=== PATIENT | male | born 1950 | race Caucasian/White ===

== ENCOUNTER → 2018-04-19 10:27 | Outpatient (CLI) | payer MEDICARE, SELFPAY ==
--- NOTE | 2018-04-19 10:29 | RAD_ITS ---
STUDY: X-RAY - RIGHT ELBOW REASON FOR EXAM: Male, 67 years old. Pain and swelling. TECHNIQUE: 3 view(s) of the elbow. COMPARISON: None. FINDINGS: Normal visualized humerus, radius and ulna. Normal radiocapitellar and ulnotrochlear articulations. There is posterior soft tissue swelling. There is no demonstrated fracture. RAD/Elbow min 3 Views IMPRESSION: Soft tissue swelling. Electronically Signed: Mihir Ricks MD at 23:54 EDT , Service support ,
== END ==
PROVIDERS: Family Provider Family Medicine; PCP Family Medicine; Visit Provider Orthopaedic Surgery
DX: M25.521 Pain in right elbow (principal)
CPT/HCPCS: 73080

== ENCOUNTER 2018-04-25 06:57 | Day surgery (SDC) | payer MEDICARE, SELFPAY ==
[2018-04-25] VITALS (8 sets, daily range): BP systolic 94–136; BP diastolic 59–89; PULSE 65–74; RESP 16; TEMP 36.2–36.8; O2SAT 94–100; BMI 28.8
[2018-04-25] MEDS: Cefazolin 2 GM in 0.9% Normal Saline 100 ML IV (08:26)
--- NOTE | 2018-04-25 08:34 | DCINST_ITS ---
Discharge Diet: No Restrictions - keep dressing c/d/i, leave splint on, follow up on monday for wound check/ removal of yandel drain Discharge Activity: May Not Drive May shower in (days): 1 Ice area for (Minutes): 20 - Every hour while awake. Weight Bearing Status: Weight bearing as tolerated Keep extremity elevated above heart level: Operative Extremity Call your doctor if your incision/area has: Continuous Slow Oozing, Sudden Increased Bleeding, Increased Pain/ Swelling, Increased Redness, Foul Smelling Discharge Call your doctor if you observe: Fever of 101 or Higher, Coldness, Increased Pain, Numbness or Tingling, Change in Color, Calf discomfort Allergies/Adverse Reactions: Allergies No Known Allergies Allergy (Unverified 04/19/18 10:18) Medications to take at Discharge allopurinol 100 mg tablet 100 mg PO QDAY 04/19/18 amlodipine 5 mg-benazepril 10 mg capsule 1 cap PO QDAY 04/19/18 aspirin 81 mg tablet,delayed release 81 mg PO QDAY 04/19/18 levothyroxine 150 mcg capsule 150 mcg PO QDAY 04/19/18 losartan 25 mg tablet 25 mg PO QDAY 04/19/18 metoprolol succinate ER 100 mg tablet,extended release 24 hr 100 mg PO BID 04/19 nitroglycerin 0.4 mg sublingual tablet 0.4 mg SUBLINGUAL Q5M PRN 04/19/18 tamsulosin 0.4 mg capsule 0.4 mg PO QDAY 04/19/18 Hydrocodone Bitart/Apap 5-325 [Marston 5MG-325MG] 1 - 2 tablet PO Q6H PRN PRN 5 Days #56 tablet 04/25/18 The following prescriptions were given: Hydrocodone Bitart/Apap 5-325 [Marston 5MG-325MG] 1 - 2 tablet PO Q6H PRN PRN 5 Days #56 tablet PRN Reason: Pain Primary Care Physician: Abisai Joseph [Primary Care Provider] - Please Follow Up With: Ct Bravo, - [phone]
[2018-04-25] MEDS: Mupirocin Ointment 22gm Tube 1 APPLIC (09:45)
--- NOTE | 2018-04-25 10:03 | OP.PCM_ITS ---
Report of Operation Date of Procedure: 04/25/18 Pre-Operative Diagnosis: right olecranon septic bursitis Post-Operative Diagnosis: same Surgery/Procedure Performed:: right olecranon bursectomy/ irrigation/debridement , olecranon bony debridement, Type of Anesthesia:: General Anesthesiologist: Kwasi Mendez Specimen's removed: olecranon bursae, olecranon bone, cultures sent Drains: yandel Estimated Blood Loss (mL): 10cc Fluids Replaced: 1100cc lr Description of Procedure: Preoperative note Patient was seen in my office last week with continued right pain elbow pain and redness. He has been seen by his primary care doctor who has been putting him on different antibiotics with minimal improvement. Patient states that the redness was getting worse and is therefore seen by myself in the clinic. At that point we elected to proceed with the removal of the olecranon bursa and bony debridement as it appeared to be a septic bursitis. Risks benefits and alternatives surgery discussed with patient. Risks including but not limited to blood loss, blood clot, infection, neurovascular injury, failure procedure, loss of life and loss of limb. Patient is aware would like to proceed with right olecranon bursectomy repair is indicated. Operative note Patient seen and examined preoperative holding area. Right arm is marked. Patient is brought to the operating room placed supine on the operating table. Signing, anesthesia, antibiotics were administered. The right arm was prepped and draped in usual sterile fashion with a tourniquet around his upper arm after he was placed laterally with an axillary roll under his left axilla. We marked out our curvilinear incision starting medially and extend and extending it going around the electronic laterally so as not to be a pressure if patient leans on his elbow and to avoid the ulnar nerve which was palpated prior to initiation of our incision.. The arm was elevated the tourniquet was raised her pressure of 250 torr. Timeout was performed. We then used a 15 blade to cut through the skin around the olecranon about a 4 cm incision. After we were able to go into the olecranon bursa and pus came out of the olecranon bursa site. We sent this to pathology for cultures. We then use a combination of tenotomies and a Bovie dissected out the bursa and this was sent as well. There is a thickened bursa throughout he also had a cleft of a traction spur and some bone that we debrided to ensure that there is no osteomyelitis due to the chronicity of the infection. We irrigated with copious amounts of sterile saline. Tourniquet was deflated for to coagulate all bleeders skin was closed with interrupted 4-0 nylon sutures and a Yandel drain was placed. Tourniquet total working time of 32 minutes. Sterile dressings were applied patient was placed in a posterior splint at 90?. Patient was extubated sent to recovery room in stable condition. Patient tolerated procedure well there are no complications. Operative note Patient to see on Monday for removal of drain We will patient put patient on antibiotics Call with increased pain numbness tingling further issues arise This note was generated with [employer] dictation software. It may contain incorrect words, spelling, and punctuation that were not noted in checking the note before signing.
[2018-04-25] MEDS: HYDROcodone Bitartrate/Apap 5/325 Tablet PO (11:29)
== END 2018-04-25 12:44 | disposition home or self-care (01) ==
LOC: SDC 06:58 → AC 06:59
PROVIDERS: Family Provider Family Medicine; PCP Family Medicine; Visit Provider Orthopaedic Surgery
PROC: (CPT 24105; principal; 2018-04-25 08:15)
DX: M70.21 Olecranon bursitis, right elbow (principal); I10 Essential (primary) hypertension; E03.9 Hypothyroidism, unspecified; I73.9 Peripheral vascular disease, unspecified; I48.91 Unspecified atrial fibrillation; Q61.3 Polycystic kidney, unspecified; M10.9 Gout, unspecified; F43.10 Post-traumatic stress disorder, unspecified; X58.XXXA Exposure to other specified factors, initial encounter; Y93.9 Activity, unspecified; Y92.9 Unspecified place or not applicable; Y99.9 Unspecified external cause status; F32.9 Major depressive disorder, single episode, unspecified; F41.9 Anxiety disorder, unspecified; Z79.82 Long term (current) use of aspirin; Z79.899 Other long term (current) drug therapy; Z85.850 Personal history of malignant neoplasm of thyroid; Z86.73 Personal history of transient ischemic attack (TIA), and cerebral infarction without residual deficits; Z87.891 Personal history of nicotine dependence; Z95.5 Presence of coronary angioplasty implant and graft
CPT/HCPCS: 24147; 87015; 87070; 87075; 87077; 87102; 87116; 87186; 87205; 87206; J7120; J2405

== ENCOUNTER → 2018-05-10 12:40 | Outpatient (CLI) | payer MEDICARE, SELFPAY ==
[2018-05-10 13:19] LABS: Pathologist Comment May follow
[2018-05-10 13:42] LABS: RBC /Synovial Fluid 0.035 10^6/uL (0); Synovial Fld Mononuclear WBC % 11.9 %; Synovial Fld Polynuclear WBC # 12.447 10^3/ul; Synovial Fld Polynuclear WBC % 88.1 %
[2018-05-10 14:31] LABS: AUTO B FLUID DILUENT BKGD CT WBC <0.1 RBC <0.01 (W<.1,R<.01)
[2018-05-10 14:32] LABS: Source / Synovial Fluid RIGHT ELBOW; Source- Body Fluid SYNOVIAL
[2018-05-10 14:33] LABS: Appearance /Synovial Fluid Cloudy (CLEAR); Color / Synovial Fluid Red (Pale Yellow)
[2018-05-10 14:34] LABS: Lymph 4 %; Monocyte /Synovial Fluid 3 %; Neutrophil 93 % (0-25)
[2018-05-11 11:44] LABS: PROTEIN, SYNOVIAL FLUID 4.5 g/dL (.)
[2018-05-14 14:22] LABS: Pathologist Review Reviewed
== END ==
PROVIDERS: Visit Provider Orthopaedic Surgery
DX: M70.21 Olecranon bursitis, right elbow (principal)
CPT/HCPCS: 84157; 87070; 87075; 87077; 87186; 87205; 89050; 89051; 89060

== ENCOUNTER 2018-05-25 09:15 | Day surgery (SDC) | payer MEDICARE, SELFPAY ==
[2018-05-25] VITALS (7 sets, daily range): BP systolic 120–130; BP diastolic 72–84; PULSE 65–75; RESP 16–18; TEMP 36.3–36.7; O2SAT 92–100; BMI 29.4
--- NOTE | 2018-05-25 | BON_PTH ---
PATIENT: CHELLY GARCIA LOC: [facility] U#:[id number] AGE/SX: 67/M ROOM: RE05/25/[address]: Dr. Ct Bravo DO : 1950 BED: DIS: 05/25/2018 SPEC #: [id number] RECD: 05/25/18 14:40 STATUS: ASIF REJame #: [id number] GUSTABO: 05/25/18 00:[address]: Ct Bravo DEPT: SURGICAL PATHOLOGY RECD BY: Paulo Fernández ENTERED: 05/25/18 14:41 SP TYPE: Bone OTHR DR: Dr. Abisai Joseph MD Tissues: A - Bone of arm, NOS B - Bursa, NOS Procedures: Decalcification bone/plaque Special Stain Group I Surgery Specimen Level III AFB Stain (control) GMS Stain (control) HEADER OPERATION: Excision olecranon bursectomy with hematoma evacuation PRE-OP DIAGNOSIS: Septic olecranon of right elbow, abscess of right olecranon bursa, hematoma TISSUE SUBMITTED: A ? Right olecranon bone, rule out osteomyelitis, B ? Right bursa MICROSCOPIC DIAGNOSIS A. Right olecranon bone, biopsy: Pieces of bone, negative for acute osteomyelitis. B. Bursa: Pieces of dense fibroconnective tissue with acute and chronic inflammation and granulation tissue reaction and focal area of abscess. Special stains for acid fast bacilli and fungi are negative for organisms; matched controls are appropriate. MENA:cas 05/29/18 MICROSCOPIC DESCRIPTION Slides are reviewed. GROSS DESCRIPTION A - Received in fixative is one container labeled with the patient's name and designated right olecranon bone, rule out osteomyelitis. The specimen consists of multiple fragments of bone that in aggregate measure 1.5 x 1 x 0.2 cm. The entire specimen is submitted in one cassette after decalcification. B - Received in fixative is one container labeled with the patient's name and designated bursa. The specimen consists of multiple pieces of roberts, indurated tissue that in aggregate measure 7 x 5 x 2 cm. Steel Wool Machine Operator sections are submitted in three cassettes. / MENA:cas 05/25/18 TC:2 CPT: 72770 x2, 33371, 44205 x2
--- NOTE | 2018-05-25 10:59 | PCM.DC.ORTHO ---
Discharge Diet: No Restrictions - remove dressing on monday and remove drain, REAPPLY SPLINT AND KEEP IN PLACE UNTIL SEEN IN OFFICE IN ONE WEEK FOR EVALUATION OF WOUND/INCISION, use hand as tolerated, call with increased pain, fever, chills or if other issues arise, follow up in ONE WEEK in office to see Harsh PERKINS. Discharge Activity: May Not Drive May shower in (days): 1 Ice area for (Minutes): 20 - Every hour while awake. Weight Bearing Status: Weight bearing as tolerated Keep extremity elevated above heart level: Operative Extremity Call your doctor if your incision/area has: Continuous Slow Oozing, Sudden Increased Bleeding, Increased Pain/ Swelling, Increased Redness, Foul Smelling Discharge Call your doctor if you observe: Fever of 101 or Higher, Coldness, Increased Pain, Numbness or Tingling, Change in Color, Calf discomfort Allergies/Adverse Reactions: Allergies No Known Allergies Allergy (Verified 05/25/18 09:51) Medications to take at Discharge allopurinol 100 mg tablet 100 mg PO QDAY 04/19/18 amlodipine 5 mg-benazepril 10 mg capsule 1 cap PO QDAY 04/19/18 aspirin 81 mg tablet,delayed release 81 mg PO QDAY 04/19/18 levothyroxine 150 mcg capsule 150 mcg PO QDAY 04/19/18 losartan 25 mg tablet 25 mg PO QDAY 04/19/18 metoprolol succinate ER 100 mg tablet,extended release 24 hr 100 mg PO BID 04/19/18 nitroglycerin 0.4 mg sublingual tablet 0.4 mg SUBLINGUAL Q5M PRN 04/19/18 tamsulosin 0.4 mg capsule 0.4 mg PO QDAY 04/19/18 Primary Care Physician: Abisai Joseph [Primary Care Provider] - Test Results: Test results from this visit will be discussed in further detail at your follow-up appointment, if applicable. Please Follow Up With: Ct Bravo, DO - [phone]
--- NOTE | 2018-05-25 11:00 | OP.PCM_ITS ---
Report of Operation Date of Procedure: 05/25/18 Pre-Operative Diagnosis: infected septic olecranon bursitis revision Post-Operative Diagnosis: same Surgery/Procedure Performed:: right elbow revision bursectomy, abe debridement , Description of Surgical Findings:: murky fluid and increased bursitis Type of Anesthesia:: General Anesthesiologist: Rodolfo Alejandre Specimen's removed: bursae, bone, cultures from fluid Estimated Blood Loss (mL): minimal Fluids Replaced: 900cc lr Description of Procedure: Preoperative note Patient is a 67-year-old male well-known to me. He was treated for quite some time prior to see me for his initial surgery for bursitis with repeat antibiotics however he was again and he failed the nonoperative treatment is seen in my office we elected to proceed with surgical debridement. Patient had olecranon debridement about a month ago he was noncompliant with his brace off he is moving his arm he developed a little bit appears to a hematoma and fluid collection. He was placed on postoperative antibiotics and there is no redness and however he does did accrue more fluid and have some bursal swelling. In the last week or so has gotten increasingly red and we saw the patient in the office yesterday decision was made to taken to the operating room today for repeat I&D of his right elbow. Risks benefits and alternatives surgery discussed with patient. Risks including but not limited to blood loss, blood clot, infection, neurovascular injury, failure procedure, loss of life and loss of limb. Family is aware would like proceed with revision right olecranon bursectomy repair is indicated. Operative note Patient seen and examined preoperative holding area. Right arm is marked. Patient brought to the operating room placed supine on the operating table. Signing, anesthesia, antibiotics were held until cultures were taken. Patient was placed in the lateral aspect lateral side with his right arm over roller. The right arm was prepped in usual sterile fashion with a tourniquet around his upper arm. Timeout was performed. We then marked out our incision from her previous bursectomy. The arm was elevated and tourniquet was raised her pressure of 250 torr. We then used a 15 blade to cut through the skin dissect down tenotomy syllable of the bursa there was some murky fluid that came we did culture that. He had regrown much of his bursa which was an ex-reexcised and sent to pathology as well. Excise as much as we could making sure to protect all neurovascular structures and my program services assistant was holding the hand to ensure that there is no twitching which there was not throughout the case. We did an extensive debridement of the bursa which is quite thickened we also took bone to repeat and to ensure that there is no osteomyelitis and sent that to pathology. We irrigated with pulse lavage 3 L and to the olecranon area we then also took off the and some skin edges to ensure better healing. We placed a Gustavo drain and then closed the skin with 3-0 nylon over the [place] drain. Sterile dressings were applied and the splint locked in 90? was applied to the right arm as well. Patient tolerated the tolerated procedure well there are no comp occasions patient transferred to recovery room in stable condition. Postoperative note Weight-bear as tolerated on the left arm, and no weightbearing to his right arm next Remove drain in 2 days, follow-up in the office to see my PA on for wound check Bactrim and Zofran at the hospital pharmacy With increased pain numbness tingling or further issues arise This note was generated with [employer] dictation software. It may contain incorrect words, spelling, and punctuation that were not noted in checking the note before signing.
[2018-05-25] MEDS: Cefazolin 2 GM in 0.9% Normal Saline 100 ML IV (11:34)
== END 2018-05-25 14:15 | disposition home or self-care (01) ==
LOC: SDC 09:16 → AC 09:17
PROVIDERS: Family Provider Family Medicine; PCP Family Medicine; Visit Provider Orthopaedic Surgery
PROC: (CPT 24105; principal; 2018-05-25 11:40)
DX: M71.121 Other infective bursitis, right elbow (principal); Z79.899 Other long term (current) drug therapy; Z79.82 Long term (current) use of aspirin; I10 Essential (primary) hypertension; I73.9 Peripheral vascular disease, unspecified; M10.9 Gout, unspecified; Z87.891 Personal history of nicotine dependence; Z85.850 Personal history of malignant neoplasm of thyroid; M71.021 Abscess of bursa, right elbow; I25.2 Old myocardial infarction; I25.10 Atherosclerotic heart disease of native coronary artery without angina pectoris
CPT/HCPCS: 01710; 24105; 87070; 87075; 87077; 87186; 87205; 88304; 88311; 88312; J7120; J2405

== ENCOUNTER → 2018-07-03 16:25 | Outpatient (CLI) | payer MEDICARE, SELFPAY ==
[2018-07-03 16:27] LABS: Pathologist Comment May follow
[2018-07-03 17:54] LABS: RBC /Synovial Fluid 0.002 10^6/uL (0); Synovial Fld Mononuclear WBC % 35.5 %; Synovial Fld Polynuclear WBC # 3.388 10^3/ul; Synovial Fld Polynuclear WBC % 64.5 %
[2018-07-03 20:56] LABS: AUTO B FLUID DILUENT BKGD CT WBC <0.1 RBC <0.01 (W<.1,R<.01); Appearance /Synovial Fluid Sl Cl (CLEAR); Color / Synovial Fluid Yellow (Pale Yellow); Lymph 8 %; Monocyte /Synovial Fluid 7 %; Neutrophil 73 % (0-25); Source / Synovial Fluid RIGHT ELBOW; Source- Body Fluid SYNOVIAL; Synovial Fld Mononuclear WBC # 1.868 10^3/ul
[2018-07-03 20:58] LABS: Body Fluid QC Type(s) BF1Q,BF2Q; Other Cell /Synovial Fluid 12 %
[2018-07-04 11:16] LABS: Pathologist Review Reviewed
== END ==
PROVIDERS: Visit Provider Physician Assistant
DX: M25.421 Effusion, right elbow (principal); M70.21 Olecranon bursitis, right elbow
CPT/HCPCS: 87070; 87075; 87205; 89050; 89051; 89060

== ENCOUNTER → 2019-03-18 | Outpatient (CLI) | payer MEDICARE, SELFPAY ==
--- NOTE | 2019-03-18 14:49 | VDLE_ITS ---
Reason For Study: Pain RIGHT LEFT GSV is normal. CFV is compressible, spontaneous, phasic, CFV is compressible, spontaneous, phasic, competent, and demonstrates normal competent and demonstrates normal augmentation. augmentation. FV is compressible, spontaneous, phasic, competent and demonstrates normal augmentation. POP V is compressible, spontaneous, phasic, competent and demonstrates normal augmentation. T/P Trunk is compressible. PTV is compressible. RT PerV is compressible. Procedure Exam performed in department. A preliminary report was called and/or faxed to Aaron. Interpretation Summary There is no evidence of right lower extremity deep vein thrombosis. Right greater saphenous vein appears patent and compressible segmentally. Normal flow patterns left common femoral vein Right groin 2.51 x 1.17cm lobulated non-vascular cystic structure--clinical correlation would be appropriate. Ordering Physician: Nicholas Walker Referring Physician: MD Abisai Motta Performed By: Xuan Cheung RVT
== END | disposition home or self-care (01) ==
PROVIDERS: Family Provider Family Medicine; PCP Family Medicine; Referring Provider Physician Assistant; Visit Provider Physician Assistant
DX: M79.661 Pain in right lower leg (principal)
CPT/HCPCS: 93971

== ENCOUNTER → 2019-10-17 13:56 | Outpatient (CLI) | payer MEDICARE, BC, SELFPAY ==
[2019-10-17 13:33] VITALS: BMI 29.4
--- NOTE | 2019-10-17 13:57 | RAD_ITS ---
STUDY: X-RAY - LEFT KNEE REASON FOR EXAM: Chronic pain, no specific injury. TECHNIQUE: 4 view(s) of the knee. COMPARISON: None. FINDINGS: Normal visualized distal femur. Normal visualized proximal tibia and fibula. Normal proximal tibiofibular articulation. Normal medial femorotibial compartment. Normal lateral femorotibial compartment. Normal patellofemoral articulation. There is a small enthesophyte at the superior pole of the patella. There is a small soft tissue calcification posterior to the proximal tibial diaphysis. RAD/Knee 4 or More Views IMPRESSION: Small patellar enthesophyte. Small soft tissue calcification. Otherwise, unremarkable x-ray examination of the left knee. Electronically Signed: Azael Delcid MD at 14:22 EST Tel , Service support ,
== END ==
PROVIDERS: Family Provider Family Medicine; PCP Family Medicine; Referring Provider Orthopaedic Surgery; Visit Provider Orthopaedic Surgery
DX: M25.562 Pain in left knee (principal)
CPT/HCPCS: 73564

== ENCOUNTER → 2020-06-11 14:29 | Outpatient (CLI) | payer MEDICARE, BC, SELFPAY ==
[2020-06-11 14:18] VITALS: BMI 29.4
--- NOTE | 2020-06-11 14:30 | RAD_ITS ---
STUDY: X-RAY - LUMBOSACRAL SPINE REASON FOR EXAM: Male, 69 years old. PAIN TECHNIQUE: 6 view(s) of the lumbosacral spine were obtained including flexion and extension. COMPARISON: None FINDINGS: Normal lumbar lordosis. There is no substantial scoliosis. Neutral view shows 7 mm anterolisthesis of L3 on L4. Extension view shows 6 mm anterolisthesis of L3 on L4. Flexion view shows 8 mm anterolisthesis of L3 on L4. Otherwise normal alignment. Spondylosis of the endplates of L4 and L5. Moderate to marked degenerative disc disease at L3-L4, L4-L5, and L5-S1. No compression fractures. Normal bilateral sacral ala, sacroiliac joints, and visualized sacrum. There is atherosclerotic calcification of the abdominal aorta without a demonstrated aneurysm. RAD/L/S Spine Comp/w Bending Views IMPRESSION: Malalignment at L3-L4 showing minimal subluxation with flexion and extension. Moderate to marked multilevel degenerative disc disease. No gross acute abnormality. Electronically Signed: Olvin Shukla MD at 22:10 EDT , Service support ,
--- NOTE | 2020-06-11 14:30 | RAD_ITS ---
STUDY: X-RAY - PELVIS AND RIGHT HIP REASON FOR EXAM: Male, 69 years old. PAIN TECHNIQUE: 3 views of the pelvis and hip. COMPARISON: None. FINDINGS: There is a non-specific bowel gas pattern. Normal visualized soft tissue structures. Normal bilateral iliac wings, sacroiliac joints and visualized sacrum. Normal bilateral superior and inferior pubic rami. Normal pubic symphysis. Normal bilateral ischial tuberosities. Normal visualized femoral head. Normal acetabulum. Normal hip joint. RAD/HIP, UNI W/ Pelvis 2-3 Views IMPRESSION: No definite acute or significant abnormality seen. Electronically Signed: Olvin Shukla MD at 22:12 EDT , Service support ,
== END ==
PROVIDERS: PCP Family Medicine; Referring Provider Physician Assistant; Visit Provider Physician Assistant
DX: M54.5 Low back pain (principal); M25.551 Pain in right hip
CPT/HCPCS: 72114; 73502

== ENCOUNTER → 2020-06-26 09:07 | Outpatient (CLI) | payer MEDICARE, BC, SELFPAY ==
[2020-06-18 09:59] VITALS: BMI 29.4
--- NOTE | 2020-06-26 09:08 | MRI_ITS ---
STUDY: MRI LUMBAR SPINE WITH AND WITHOUT CONTRAST REASON FOR EXAM: Male, 69 years old. Severe lumbar pain and radiculopathy. 3 prior surgeries TECHNIQUE: Standardized fat and water weighted pulse sequences were obtained in the sagittal and axial planes. 15ml Dotarem via IV was administered for the contrast portion of the examination. COMPARISON: June 11 2020 plain films FINDINGS: There is grade 1 degenerative anterolisthesis of L2 on L3, approximately 5 mm. Remainder of the spine is aligned. Diffuse marrow is mildly heterogeneous and normal. Paraspinous soft tissues are intact. Upper portions of the SI joints are degenerated. There are likely bilateral renal cysts, incompletely evaluated. Conus medullaris terminates at T12-L1. Cauda equina is restricted at L2-L3. L2-L3 has moderate to severe spondylotic thecal sac stenosis. Remainder of the levels have patent thecal sac with lower lumbar left decompression laminotomies. There are possible remote microdiscectomies. There is no disc herniation. There is multilevel mild to moderate bilateral foraminal stenosis. Lateral recesses are patent. Spinal enhancement is normal. Epidural space is intact. MRI/Spine Lumbar W/WO Contrast IMPRESSION: 1. Moderate to severe L2-L3 spondylotic thecal sac stenosis. 2. Patent remainder of the thecal sac including surgically decompressed levels. 3. L2-L3 grade 1 anterolisthesis. 4. Possible renal cysts, refer to renal imaging for more definitive evaluation to exclude solid renal mass. Electronically Signed: Jack Guidry, at 17:48 EDT Tel , Service support ,
[2020-06-26 09:46] LABS: CREATININE FINGERSTICK 1.3 mg/dL (0.70-1.30)
== END ==
PROVIDERS: PCP Family Medicine; Referring Provider Physician Assistant; Visit Provider Physician Assistant
DX: M54.16 Radiculopathy, lumbar region (principal)
CPT/HCPCS: 72158; A9575

== ENCOUNTER → 2022-08-22 | Outpatient (CLI) | payer MEDICARE, BC, SELFPAY ==
--- NOTE | 2022-08-22 16:35 | RAD_ITS ---
STUDY: X-RAY - THORACIC SPINE REASON FOR EXAM: Male, 72 years old. M51.34 TECHNIQUE: 3 view(s) of the thoracic spine were obtained. COMPARISON: None. FINDINGS: Normal kyphosis of the thoracic spine. There is no substantial scoliosis. There is slight multilevel loss of height which is chronic. There is multilevel anterior osteophyte formation without visualized acute loss of height or alignment. There is multilevel disc space narrowing of the thoracic spine. The visualized cervical spine fusion. This is seen at the level of C3 C4 C5. There is slight anterolisthesis of the is partially visualized anterolisthesis of the cervical spine at C2-C3. The soft tissue structures are unremarkable. RAD/Thoracic Spine 3 Views IMPRESSION: Degenerative change of the thoracic spine. Recommend dedicated cervical spine x-ray. There is partially visualized slight anterolisthesis at the level of C2-C3. Electronically Signed: Leatha Marion MD at 6:08 EDT Reading Location ID and State: [facility] / [place] Tel , Service support ,
== END | disposition home or self-care (01) ==
LOC: RAD 16:25
PROVIDERS: PCP Family Medicine; Visit Provider Anesthesiology Pain Medicine
DX: M51.36 Other intervertebral disc degeneration, lumbar region (principal)
CPT/HCPCS: 72072

== ENCOUNTER → 2022-10-24 | Outpatient (CLI) | payer MEDICARE, BC, SELFPAY ==
--- NOTE | 2022-10-24 16:55 | RAD_ITS ---
INDICATION: DISC DEGEN EXAMINATION/TECHNIQUE: X-RAY - XR Spine Cervical 2 or 3 Views COMPARISON: None. FINDINGS: VERTEBRAE: 1. Vertebral body height is maintained, anterior plate and screw fixation with interbody fusion from C3 to C5. Mild reversal of cervical lordosis which appears chronic and at the operative levels. 2. No evidence of fracture or hardware failure or acute destructive bony process. 3. Odontoid process and alignment craniocervical junction are normal. 4. The odontoid process is normal appearance. DISCS: Postop changes at this bases that C3-4 and C4-5. Mild disc space narrowing at C5-6. NECK SOFT TISSUES: No prevertebral soft tissue widening. LUNG APICES: Clear. OTHER: Foreign bodies consistent with bilateral hearing age. RAD/Cerv Spine 2 or 3 Views IMPRESSION: 1. Postoperative changes with anterior plate and screw fixation from C5. 2. No evidence of fracture, hardware failure or acute bony or paraspinous soft tissue abnormality.. Electronically Signed: Obdulio Colmenares MD at 19:22 EST ,
== END | disposition home or self-care (01) ==
LOC: RAD 16:38
PROVIDERS: PCP Family Medicine; Referring Provider Anesthesiology Pain Medicine; Visit Provider Anesthesiology Pain Medicine
DX: M50.322 Other cervical disc degeneration at C5-C6 level (principal); Z98.1 Arthrodesis status; M47.812 Spondylosis without myelopathy or radiculopathy, cervical region; M47.892 Other spondylosis, cervical region
CPT/HCPCS: 72040

== ENCOUNTER → 2023-03-15 | Outpatient (CLI) | payer OTHER, SELFPAY ==
--- NOTE | 2023-03-15 13:04 | ECHOD_ITS ---
Reason For Study: CAD/ASHD Procedure This was a 2D Doppler, Color Flow transthoracic echocardiogram. Exam performed in department. Left Ventricle Normal LV size. The estimated ejection fraction is 60 %. No evidence for diastolic dysfunction. No regional wall motion abnormalities noted. Right Ventricle Normal RV size. Normal systolic function. Atria Normal left atrium. Normal right atrium. No doppler evidence for ASD. Mitral Valve There is no mitral valve stenosis. Trivial mitral valve insufficiency. Tricuspid Valve There is no tricuspid stenosis. Pulmonary artery systolic pressure is 40 mmHg. Trivial tricuspid valve insufficiency. Aortic Valve Trisinus/trileaflet aortic valve. There is no aortic stenosis. No aortic valve insufficiency. Pulmonic Valve There is no pulmonic valvular stenosis. No pulmonic valve insufficiency. Great Vessels Normal aortic root. Pericardium/Pleural No pericardial effusion. MMode/2D Measurements & Calculations RVDd: 3.6 cm Ao root diam: 3.6 cm LAV(MOD-bp): 65.5 ml LAV(MOD-bp) Indexed: 35.6 ml/m2 LAV(MOD-sp2): 87.2 ml LAV(MOD-sp4): 45.5 ml SV(MOD-sp4): 49.9 ml SV(sp4-el): 50.9 ml LVAd ap4: 27.2 cm2 LVLd ap4: 9.0 cm EDV(MOD-sp4): 68.3 ml EDV(sp4-el): 69.6 ml LVAs ap4: 12.9 cm2 LVLs ap4: 7.6 cm ESV(MOD-sp4): 18.3 ml ESV(sp4-el): 18.7 ml EF(MOD-sp4): 73.1 % EF(sp4-el): 73.1 % LA A4 area: 18.1 cm2 LA dimension(2D): 4.1 cm RA A4 area: 16.7 cm2 Time Measurements MV dec time: 0.33 sec Doppler Measurements & Calculations MV E max maynor: 66.6 cm/sec Lat Peak E' Maynor: 7.3 cm/sec Med Peak E' Maynor: 6.6 cm/sec MV A max maynor: 109.9 cm/sec E/E' lat: 9.1 E/E' med: 10.0 MV E/A: 0.61 MV V2 max: 114.9 cm/sec MV dec slope: 201.6 cm/sec2 Ao V2 max: 163.1 cm/sec MV max P.3 mmHg Ao max P.7 mmHg MV V2 mean: 61.4 cm/sec Ao V2 mean: 116.6 cm/sec MV mean P.7 mmHg Ao mean P.2 mmHg MV V2 VTI: 37.5 cm Ao V2 VTI: 36.4 cm AV (velocity ratio): 0.70 LV V1 max: 105.2 cm/sec PA V2 max: 80.7 cm/sec TR max maynor: 283.1 cm/sec LV V1 max P.4 mmHg PA V2 mean: 54.0 cm/sec TR max P.1 mmHg LV V1 mean P.2 mmHg LV V1 mean: 68.5 cm/sec LV V1 VTI: 25.6 cm ECHO/Echo Complete Interpretation Summary The estimated ejection fraction is 60 %. No evidence for diastolic dysfunction. Trivial mitral valve insufficiency. Ordering Physician: CAROL BARBA Referring Physician: Abisai Joseph Performed By: Ana M English RCS
== END | disposition home or self-care (01) ==
PROVIDERS: PCP Family Medicine; Referring Provider Family Medicine
DX: I25.10 Atherosclerotic heart disease of native coronary artery without angina pectoris (principal)
CPT/HCPCS: 93306

== ENCOUNTER → 2023-04-05 | Outpatient (CLI) | payer MEDICARE, BC, SELFPAY ==
--- NOTE | 2023-04-05 11:35 | RAD_ITS ---
STUDY: X-RAY - THORACIC SPINE REASON FOR EXAM: Male, 72 years old. Thoracic pain. TECHNIQUE: 3 view(s) of the thoracic spine were obtained. COMPARISON: None. FINDINGS: Normal kyphosis of the thoracic spine. There is no substantial scoliosis. There is demineralization of the thoracic spine with endplate spondylosis. There is multilevel disc space narrowing of the thoracic spine. There is no evidence of acute fracture or loss of vertebral axial height. There is evidence of anterior fusion of lower cervical spine. The soft tissue structures are unremarkable. RAD/Thoracic Spine 3 Views IMPRESSION: Degenerative changes of the thoracic spine without acute fracture or subluxation. Electronically Signed: Ramana Khan DO at 19:42 EDT ,
== END | disposition home or self-care (01) ==
LOC: RAD 11:32
PROVIDERS: PCP Family Medicine; Referring Provider Anesthesiology Pain Medicine; Visit Provider Anesthesiology Pain Medicine
DX: M51.34 Other intervertebral disc degeneration, thoracic region (principal); M47.814 Spondylosis without myelopathy or radiculopathy, thoracic region
CPT/HCPCS: 72072

== ENCOUNTER 2023-07-12 08:17 | Day surgery (SDC) | payer MEDICARE, BC, SELFPAY ==
--- NOTE | 2023-07-11 15:44 | HP.PCM_ITS ---
History and Physical Date of Admission: 07/12/23 HISTORY OF PRESENT ILLNESS 72 year old man presents for evaluation for TBSE. He had an ulcerated lesion on the dorsal aspect proximal left forearm that was biopsied on 06/15/23. Pathology showed a basal cell carcinoma, superficial and nodular types. It was a full thickness excisional biopsy. The peripheral margins were positive. After the surgery he developed a localized infection that led to some swelling. He was placed on Doxycycline. He denies fever. He denies trauma. He denies drainage. There is a family history of melanoma. He presents today for further evaluation and treatment. PAST MEDICAL HISTORY Anxiety Basal cell carcinoma of left forearm Drug abuse Family history of melanoma Former smoker Gout Hearing problem Heart disease Hypertension Hypothyroid Kidney disease Kidney failure PAD (peripheral artery disease) PTSD (post-traumatic stress disorder) Skin cancer Thyroid carcinoma PAST SURGICAL HISTORY H/O elbow surgery H/O thyroidectomy ALLERGIES No Known Allergies MEDICATIONS allopurinol amlodipine-benazepril losartan metoprolol succinate aspirin atorvastatin (Lipitor) bupropion HCl clopidogrel (Plavix) docusate sodium levothyroxine omeprazole tamsulosin FAMILY HISTORY Mother Diabetes Depression SOCIAL HISTORY Smoking Status: Former smoker alcohol intake: never substance use type: other details: Medical Marijuana REVIEW OF SYSTEMS General - Denies fever, fatigue, and weight loss. Eyes - Denies cataracts and glaucoma. ENT - Denies nasal congestion and sore throat. Endocrine - Denies excessive thirst and urination. Has thyroid disease. Skin - Had an ulcerated lesion dorsal aspect proximal left forearm that was biopsied on 06/15/24 and pathology showed a basal cell carcinoma, superficial and nodular types. There is a family history of melanoma. Musculoskeletal - Denies joint pain, joint stiffness, weakness of muscles and joints, and arthritis. Has back pain. Neuro - Denies headaches. Cardiovascular - Denies chest pain, fatigue, and shortness of breath with exertion. Psych - Denies anxiety and depression. Respiratory - Denies chronic cough and shortness of breath. Patient is a former smoker. Gastrointestinal - Denies nausea, vomiting, diarrhea, and constipation. Hematologic - Denies abnormal bruising and bleeding. Genitourinary - Denies hematuria and urinary frequency. PHYSICAL EXAMINATION General - Alert and Oriented. HEENT - PERRL. EOMI. Throat is clear. No suspicious lesions noted. Neck - Supple and nontender. No cervical adenopathy. No suspicious lesions noted. Lungs - Clear to auscultation. Heart - Regular rate and rhythm. Abdomen - Soft and nondistended. Extremities - FROM. No axillary adenopathy. Radial pulses are palpable. On the dorsal aspect proximal left forearm is a healing scar from recent excisional biopsy of a basal cell carcinoma, superficial and nodular types. The basal cell carcinoma horizontal scar measures 2 cm. Mild swelling present from localized infection after the biopsy. No ulceration. Scar is nontender. Neuro - CN II-XII grossly intact. No other suspicious lesions noted. Psych - Normal mood and affect. ASSESSMENT 1. 2 cm basal cell carcinoma scar, superficial and nodular types, dorsal aspect proximal left forearm. 2. Family history of melanoma. 3. Former smoker. PLAN Medical records reviewed. Pathology reviewed. The excisional biopsy showed a basal cell carcinoma, superficial and nodular types, with positive peripheral margins. Recommended further excision of this ulcerated basal cell carcinoma with margins in all directions. Reconstruction will be with a local skin flap or a skin graft. His forearm skin is quite fragile. I may not be able to transpose a skin flap into the defect without the fragile skin tearing. If that is the case, then will apply a skin graft taken from his flank area. Surgery will be done under local anesthesia and IV sedation on an outpatient basis. He will continue the Doxycycline until finished. Patient was informed of the risks and complications of the procedure including alternatives to surgery. These were discussed with the patient personally. Patient voices understanding and wishes to proceed. Some of the risks and complications were included in a form from the [employer]. Potential risks and complications included but not inclusive of bleeding, infection, seroma, hematoma, bruising, swelling, prolonged need for drains, loss of sensation to skin, partial or complete loss of skin flap and/or skin graft, wound breakdown, need for wound care, poor scarring, poor aesthetic outcome, intra operative cardiac or neurologic events, DVT, PE, and reaction to anesthesia. Assessment & Plan Assessment/Plan (1) Basal cell carcinoma of left forearm: (2) Family history of melanoma: (3) Former smoker:
--- NOTE | 2023-07-12 | TISS_PTH ---
PATIENT: CHELLY GARCIA LOC: [facility] [place] U[place][id number] AGE/SX: 72/M ROOM: RE07/12/[address]: Dr. Shine Mckeon MD : 1950 BED: DIS: 07/12/2023 SPEC #: [id number] RECD: 07/12/23 12:18 STATUS: ASIF FRITZ #: [id number] GUSTABO: 07/12/23 00:[address]: Shine Mckeon DEPT: SURGICAL PATHOLOGY RECD BY: Jasmina Last ENTERED: 07/12/23 13:02 SP TYPE: Tissue Bx MAIN DR: Dr. Abisai Joseph MD Tissues: Skin of forearm, NOS Procedures: Surgery Specimen Level IV HEADER OPERATION: Excision basal cell cancer dorsal aspect left proximal forearm PRE-OP DIAGNOSIS: Basal cell carcinoma of left forearm; family history of melanoma TISSUE SUBMITTED: Basal cell carcinoma of left forearm, suture king 12 o'clock MICROSCOPIC DIAGNOSIS Basal cell carcinoma of left forearm, excisional biopsy: Extensive solar elastosis. Actinic keratosis. Melanocytic hyperplasia, favor reactive. Negative for carcinoma. Focal changes consistent with scar. See comment. MENA:cas 07/13/2023 COMMENT Immunohistochemistry ([id number]) supports the above diagnosis. Clinical correlation and appropriate follow up are necessary. This case has been reviewed in consultation with Dr. Forrester who concurs with the above diagnosis. MICROSCOPIC DESCRIPTION Slides are reviewed. GROSS DESCRIPTION Received in fixative is one container labeled with the patient's name and designated basal cell carcinoma of left forearm. The specimen consists of a keerthi-shaped piece of roberts-white skin measuring 2.5 x 1.5 cm and up to 0.4 cm in thickness. The specimen is inked as follows: 12 to 3 o'clock - black, 3 to 6 o'clock - blue, 6 to 9 o'clock - green and 9 to 12 o'clock - yellow. The specimen is serially sectioned and submitted entirely in one cassette. / MENA:cas 07/12/2023 TC:5 CPT: 49630
--- NOTE | 2023-07-12 | IMM_PTH ---
PATIENT: CHELLY GARCIA LOC: [facility] – [place] U#:[id number] AGE/SX: 72/M ROOM: RE07/12/[address]: Dr. Shine Mckeon MD : 1950 BED: DIS: 07/12/2023 SPEC #: [id number] RECD: 07/14/23 13:55 STATUS: ASIF REQ #: [id number] GUSTABO: 07/12/23 00:[address]: Shine Mckeon DEPT: IMMUNOHISTOCHEMISTRY RECD BY: Christine Ahmadi ENTERED: 07/14/23 13:56 SP TYPE: IMMUNO OTHR DR: Dr. Abisai Joseph MD Tissues: Skin of forearm, NOS Procedures: CK5-6 (initial) MART1 (add) P40 (add) S-100 (add) PHYSICIAN & INSTITUTION [place] [id number] SPECIMEN INFORMATION: Tissue Source: Basal cell carcinoma of left forearm Clinical Info: Basal cell carcinoma of left forearm Specimen Number: [id number] CPT code: 19573, 59699 x3 METHODOLOGY: Deparaffinized sections of prefer/formalin-fixed tissue or PAP/DQ stained slides are incubated with monoclonal/polyclonal antibodies/oligonucleotide probes. Localization is made via biotin free immunoperoxidase method. Appropriate controls are performed and reacted as expected. Results on target cell population are indicated in the following table: RESULTS: ANTIBODY / CLONE RESULT CK5-6 (D5 & 1684) negative P40 (BC28) negative S-100 (4C4.9) positive MART-1 (A-103) positive These tests were developed and their performance characteristics determined by [facility]. They may not have been cleared or approved by the U.S. Food and Drug Administration. The FDA has determined that such clearance or approval is not necessary. The above immunohistochemical/dualISH markers are ordered and reviewed by the Pathologist. INTERPRETATION: Basal cell carcinoma of left forearm, excision: Melanocytic hyperplasia, favor reactive. Negative for carcinoma. SJ:cas 07/17/2023 Case has been reviewed in consultation with Dr. Forrester who concurs with the above diagnosis. IDC:AM
[2023-07-12 08:55] VITALS: BP 130/78; PULSE 74; RESP 18; TEMP 36.2; O2SAT 99; BMI 24.9
[2023-07-12] MEDS: Lactated Ringers 1,000 ML 15 ML IV (09:03)
[2023-07-12] MEDS: Cefazolin 2 GM in 0.9% Normal Saline 100 ML IV (10:52)
[2023-07-12] MEDS: Lidocaine 1% /Epi 1:100 (20ml) 20 ML Vial (11:22)
[2023-07-12] MEDS: Mupirocin Ointment 22gm Tube 1 APPLIC (11:52)
--- NOTE | 2023-07-12 11:53 | OP.PCM_ITS ---
Problems Associated Problem List Diagnoses (1) Basal cell carcinoma of left forearm: (2) Family history of melanoma: (3) Former smoker: Report of Operation Date of Procedure: 07/12/23 Pre-Operative Diagnosis: 1. 2 cm basal cell carcinoma scar, superficial and nodular types, dorsal aspect proximal left forearm. 2. Family history of melanoma. 3. Former smoker. Post-Operative Diagnosis: Same. Surgery/Procedure Performed:: Excision 2 cm basal cell carcinoma scar, superficial and nodular types, dorsal aspect proximal left forearm with rhomboid transposition skin flap reconstruction (15.68 cm2). Description of Surgical Findings:: 72 year old man presents for evaluation for TBSE. He had an ulcerated lesion on the dorsal aspect proximal left forearm that was biopsied on 06/15/23. Pathology showed a basal cell carcinoma, superficial and nodular types. It was a full thickness excisional biopsy. The peripheral margins were positive. After the surgery he developed a localized infection that led to some swelling. He was placed on Doxycycline. He denies fever. He denies trauma. He denies drainage. There is a family history of melanoma. Patient was informed of the risks and complications of the procedure including alternatives to surgery. These were discussed with the patient personally. Patient voices understanding and wishes to proceed. Some of the risks and complications were included in a form from the [employer]. Potential risks and complications included but not inclusive of bleeding, infection, seroma, hematoma, bruising, swelling, loss of sensation to skin, partial or complete loss of skin flap and/or skin graft, wound breakdown, need for wound care, poor scarring, poor aesthetic outcome, intra operative cardiac or neurologic events, DVT, PE, and reaction to anesthesia. Surgeon: Shine Mckeon MD vehicle modification technician: Katie Zhu RNFA Type of Anesthesia: General Anesthesiologist: Kwasi Mendez MD and Zoë Mckee CRNA Specimen's removed: Basal cell carcinoma scar dorsal aspect left proximal forearm to Pathology. Drains: None. Estimated Blood Loss (mL): 20. Description of Procedure: Patient was taken to OR in supine position and was placed under general anesthesia. The left upper extremity was prepped and draped in the usual fashion. SCD's were placed for DVT prophylaxis. Perioperative antibiotics were given intravenously. Using xylocaine with epinephrine, the basal cell carcinoma scar dorsal aspect left proximal forearm was infiltrated. After waiting 5 minutes for the anesthetic to take effect, the basal cell carcinoma scar was excised with a 1 cm margin in all directions making the central limb length of 4 cm with a rhomboid shape down into the subcutaneous tissue. The outer limbs of the rhomboid flap measured 2.8 cm. A suture was marked at 12 oclock position for pathology orientation. The lesion was sent to Pathology for analysis to rule out carcinoma at the margins. A rhomboid flap was marked out adjacent to the basal cell carcinoma wound defect. The size of the carcinoma wound defect and the size of the flap needed to close the carcinoma wound defect was 15.68 cm2. Incisions were made as the rhomboid flap was elevated on a subcutaneous pedicle at the level of the underlying muscular fascia. The rhomboid flap was transposed into the wound defect with minimal tension and minimal distortion. Hemostasis was obtained with electrocautery. The distal forearm skin is quite thin and fragile with scattered bruises and a basal cell carcinoma wound distally on the forearm would have been skin grafted. However, the proximal forearm skin, elbow skin, and distal arm skin was of better quality, that I felt a local skin flap would be adequate enough and strong enough to heal satisfactory instead of a skin graft. After transposing the rhomboid flap into the basal cell carcinoma wound defect, the wound was closed in a layered fashion with 3-0 Monocryl interrupted sutures for the deep dermis and subcutaneous tissue. The skin was approximated with 4-0 Prolene simple interrupted sutures. Antibiotic ointment was applied followed by 4x4 gauze and a compression saulo wrap. Patient tolerated the procedure well and was sent to PACU in satisfactory condition. Patient will be sent home on antibiotics and pain medication. He will keep his left upper extremity elevated during the initial postoperative period. Patient will followup in a week for a wound check and for discussion of the pathology report. The sutures will be removed in 2-3 weeks. Grafts/Implants Used: None. Procedure Start Time: 11:22 Procedure Stop Time: 11:57 Complications None. Admit VTE Documentation VTE Present on Admission: No VTE Mechan Device Prophylaxis: SCD's VTE Pharm Prophylaxis ordered?: No Addendum Addendum: Surgery Charges CPT - 64125 ICD-10 - C44.619, Z80.8, Z87.891
[2023-07-12 12:08] VITALS: BP 130/69; BP 130/78; PULSE 73; RESP 14; TEMP 37.1; O2SAT 92
[2023-07-12 12:15] VITALS: BP 130/78; BP 134/67; PULSE 83; RESP 18; O2SAT 97
[2023-07-12 12:30] VITALS: BP 130/78; BP 140/77; PULSE 79; RESP 18; TEMP 36.8; O2SAT 99
--- NOTE | 2023-07-12 12:34 | DCINST_ITS ---
Discharge Instructions Diet Discharge Diet: No restrictions and - (encourage nutritional supplementation with protein to help the healing process.) Activity Discharge Activity: May Not Drive, May Shower (in one day. wear plastic bag over left arm when showering.) and - (no heavy lifting. keep head elevated.) May shower in (days): 1 (wear plastic bag over left) May resume sexual activity in: 4-6 weeks Weight Bearing Status: Weight bearing as tolerated Keep extremity elevated above heart level: Left Arm Dressing / Incision Call your doctor if your incision/area has: Continuous Slow Oozing, Sudden Increased Bleeding, Increased Pain/ Swelling, Increased Redness, Foul Smelling Discharge and Swelling at the incision site Call your doctor if you observe: Fever of 101 or Higher, Coldness, Increased Pain, Shortness of breath, Chest pain, Calf discomfort and Uncontrolled pain Change Dressing in: do not change dressing (will change operative dressing in the office.) Cleanse incision/area with: Soap & Water (after the operative dressing removed in 2 days, can apply antibiotic ointment to the suture lines daily followed by gauze and compression saulo wrap.) Follow Up Care Please Follow Up With: Shine Mckeon MD When: 07/18/23 at 230pm. call [phone] for appt Test Results: Test results from this visit will be discussed in further detail at your follow- up appointment, if applicable. Discharge Plan Admission Primary Reason for Your Visit: excision basal cell carcinoma dorsal aspect left proximal forearm Attending Provider: Shine Mckeon Primary Care Provider: Abisai Joseph Discharge Orders/Prescriptions Prescriptions: New doxycycline hyclate 100 mg capsule 100 mg PO BID Qty: 20 0RF L.acidoph,saliva-B.bif-S.therm [Acidophilus Probiotic Blend] 175 mg capsule 1 cap PO DAILY Qty: 30 0RF oxycodone-acetaminophen [Percocet] 5-325 mg tablet 1 tab PO Q6H PRN (Reason: pain (scale score 7-10)) 5 Days Qty: 20 0RF Rx Instructions: 20 tabs (twenty) Continued amlodipine-benazepril 5-10 mg capsule 1 cap PO QDAY allopurinol 100 mg tablet 100 mg PO QDAY metoprolol succinate 100 mg tablet extended release 24 hr 50 mg PO QHS levothyroxine 150 mcg capsule 150 mcg capsule 175 mcg PO QDAY bupropion HCl 75 mg tablet 75 mg PO DAILY tamsulosin 0.4 mg capsule 0.4 mg PO QHS atorvastatin [Lipitor] 40 mg tablet 40 mg PO QHS Held aspirin 81 mg tablet,delayed release (DR/EC) 81 mg PO Q OTHER DAY Hold Instructions: Resume on 07/14/23. clopidogrel [Plavix] 75 mg tablet 75 mg PO DAILY Hold Instructions: Resume on 07/13/23. Referrals / Follow Up: Abisai Joseph MD [Primary Care Provider] - Disposition Disposition (needs filled in before D/C Order can be placed): Home, Self Care
[2023-07-12 13:46] VITALS: BP 130/78
== END 2023-07-12 13:57 | disposition home or self-care (01) ==
LOC: SDC 08:18 → AC 08:20
PROVIDERS: PCP Family Medicine; Referring Provider Surgery; Visit Provider Surgery
PROC: (CPT 14021; principal; 2023-07-12 09:50)
DX: C44.619 Basal cell carcinoma of skin of left upper limb, including shoulder (principal); Z80.8 Family history of malignant neoplasm of other organs or systems; Z87.891 Personal history of nicotine dependence; L57.8 Other skin changes due to chronic exposure to nonionizing radiation; L57.0 Actinic keratosis; E03.9 Hypothyroidism, unspecified
CPT/HCPCS: 14021; 00300; 88305; 88341; 88342; J7120; J2405

== ENCOUNTER → 2023-07-18 | Outpatient (CLI) | payer MEDICARE, BC, SELFPAY ==
[2023-07-18 14:24] LABS: Hematocrit 28.8 % (40-54); Hemoglobin 9.4 g/dL (13.0-16.5); Mean Corp Hgb Conc 32.6 g/dL (32-36); Mean Corpuscular Hgb 32.3 pg (27.0-32.0); Mean Platelet Vol. 8.7 fl (6.2-12.0); Platelet Count 294 K/mm3 (150-450); RBC Distribution Width CV 13.4 % (11.6-14.6); RBC Distribution Width SD 48.9 fl (35.1-43.9); Red Blood Count 2.91 M/mm3 (4.6-6.2); White Blood Count 9.9 K/mm3 (4.4-11.0)
[2023-07-18 14:55] LABS: Albumin, Serum 3.2 g/dL (3.2-5.0); BUN 46 mg/dL (7-18); BUN/Creat Ratio 17.2 RATIO (10-20); Calcium,Total 8.9 mg/dL (8.5-10.1); Chloride 107 mmol/L (98-107); Creatinine, Serum 2.68 mg/dL (0.70-1.30); EST Glomerular Filtration Rate 25 mL/min (>60); Est Glom Filt Rate - Afr Amer 30 mL/min (>60); Ferritin 85 ng/mL (26-388); Glucose 103 mg/dL (74-106); Iron 47 ug/dL (65-175); Iron Binding Capacity,Total 269 ug/dL (250-450); PERCENT IRON SATURATION 17.5 % (15.0-55.0); Phosphorus 3.4 mg/dL (2.5-4.9); Potassium 4.6 mmol/L (3.5-5.1); Sodium Level 135 mmol/L (136-145)
== END | disposition home or self-care (01) ==
PROVIDERS: PCP Family Medicine
DX: N18.4 Chronic kidney disease, stage 4 (severe) (principal); D63.1 Anemia in chronic kidney disease
CPT/HCPCS: 36415; 80069; 82728; 83540; 83550; 85027

== ENCOUNTER → 2023-08-21 | Outpatient (CLI) | payer OTHER, SELFPAY ==
--- NOTE | 2023-08-21 07:49 | ECHOD_ITS ---
Reason For Study: CAD/ASHD Procedure This was a 2D Doppler, Color Flow transthoracic echocardiogram. Exam performed in department. Left Ventricle Normal LV size. The estimated ejection fraction is 60 %. No evidence for diastolic dysfunction. No regional wall motion abnormalities noted. Right Ventricle Normal RV size. Normal systolic function. Atria Normal left atrium. Normal right atrium. No doppler evidence for ASD. Mitral Valve There is no mitral valve stenosis. No mitral valve insufficiency. Tricuspid Valve There is no tricuspid stenosis. Mild tricuspid valve insufficiency. Pulmonary artery systolic pressure is 30 mmHg. Aortic Valve Trisinus/trileaflet aortic valve. There is no aortic stenosis. No aortic valve insufficiency. Pulmonic Valve There is no pulmonic valvular stenosis. No pulmonic valve insufficiency. Great Vessels Normal aortic root. Pericardium/Pleural No pericardial effusion. MMode/2D Measurements & Calculations LVIDd: 4.0 cm IVSd: 1.3 cm Ao root diam: 2.9 cm LVIDs: 2.6 cm LVPWd: 1.2 cm RVDd: 3.7 cm FS: 34.1 % LAV(MOD-bp): 29.6 ml LVAd ap4: 26.1 cm2 SV(MOD-sp4): 37.8 ml LAV(MOD-bp) Indexed: 16.3 ml/m2 LVLd ap4: 8.2 cm LAV(MOD-sp2): 31.2 ml EDV(MOD-sp4): 69.6 ml LAV(MOD-sp4): 27.6 ml EDV(sp4-el): 70.7 ml LVAs ap4: 15.9 cm2 LVLs ap4: 6.7 cm ESV(MOD-sp4): 31.8 ml ESV(sp4-el): 31.9 ml EF(MOD-sp4): 54.3 % EF(sp4-el): 54.8 % SV(sp4-el): 38.7 ml LA A4 area: 12.1 cm2 LA dimension(2D): 3.8 cm RA A4 area: 12.7 cm2 TAPSE: 2.8 cm Time Measurements MV dec time: 0.32 sec Doppler Measurements & Calculations MV E max maynor: 46.3 cm/sec Lat Peak E' Maynor: 4.7 cm/sec Med Peak E' Maynor: 6.2 cm/sec MV A max maynor: 102.5 cm/sec E/E' lat: 9.8 E/E' med: 7.5 MV E/A: 0.45 Ao V2 max: 126.8 cm/sec LV V1 max: 79.1 cm/sec MV dec slope: 142.3 cm/sec2 Ao max P.4 mmHg LV V1 max P.5 mmHg Ao V2 mean: 97.3 cm/sec Ao mean P.1 mmHg Ao V2 VTI: 24.4 cm PA V2 max: 99.2 cm/sec PI end-d maynor: 98.4 cm/sec TR max maynor: 247.9 cm/sec TR max P.6 mmHg ECHO/Echo Complete Interpretation Summary The estimated ejection fraction is 60 %. No evidence for diastolic dysfunction. Ordering Physician: Lambert Hayes Referring Physician: Abisai Joseph Performed By: Telma Mosquera, ANGIE, RVT
== END | disposition home or self-care (01) ==
LOC: CVS 07:49
PROVIDERS: PCP Family Medicine; Referring Provider Chiropractor; Visit Provider Chiropractor
DX: I25.10 Atherosclerotic heart disease of native coronary artery without angina pectoris (principal)
CPT/HCPCS: 93306

== ENCOUNTER → 2023-09-11 | Outpatient (CLI) | payer OTHER, SELFPAY ==
[2023-09-11 10:17] LABS: Color, Urine Yellow (Yellow); Glucose, Dipstick Normal (Normal); Ketone-Dipstick Negative (Negative); Leukocyte Esterase-Dipstick Negative /ul (Negative); Nitrite-Dipstick Negative (Negative); Occult Blood-Urine Negative /ul (Negative); Protein-Dipstick 100 mg/dl (Negative); Urine Bilirubin Dipstick Negative (Negative); Urine Clarity Clear (Clear); Urine Urobilinogen Normal (Normal)
[2023-09-11 10:56] LABS: AST(SGOT) 8 U/L (15-37); Alanine Aminotransfer ALT/SGPT 16 U/L (16-61); Albumin, Serum 3.2 g/dL (3.2-5.0); Alkaline Phosphatase 72 U/L (45-117); Anion Gap 7 (5-15); BUN 45 mg/dL (7-18); BUN/Creat Ratio 14.6 RATIO (10-20); Calcium,Total 9.4 mg/dL (8.5-10.1); Chloride 111 mmol/L (98-107); Creatinine, Serum 3.09 mg/dL (0.70-1.30); EST Glomerular Filtration Rate 21 mL/min (>60); Est Glom Filt Rate - Afr Amer 26 mL/min (>60); Free T3 2.8 pg/mL (2.18-3.98); Globulin 3.3 g/dL (2.2-4.2); Glucose 96 mg/dL (74-106); Potassium 4.9 mmol/L (3.5-5.1); Protein, Total 6.5 g/dL (6.4-8.2); Sodium Level 138 mmol/L (136-145); T4 Free Direct 1.42 ng/dL (0.76-1.46); Thyroid Stim Hormone (TSH) 0.07 uIU/mL (0.358-3.74)
== END | disposition home or self-care (01) ==
LOC: LAB 08:54
PROVIDERS: PCP Family Medicine; Referring Provider Chiropractor; Visit Provider Chiropractor
DX: N18.9 Chronic kidney disease, unspecified (principal)
CPT/HCPCS: 36415; 80053; 81002; 84439; 84443; 84481

== ENCOUNTER → 2024-03-26 | Outpatient (CLI) | payer MEDICARE, BC, SELFPAY ==
[2024-03-26 13:06] LABS: Hematocrit 26.4 % (40-54); Hemoglobin 8.7 g/dL (13.0-16.5)
[2024-03-26 13:33] LABS: Albumin, Serum 3.4 g/dL (3.2-5.0); BUN 43 mg/dL (7-18); BUN/Creat Ratio 14.5 RATIO (10-20); Calcium,Total 9.4 mg/dL (8.5-10.1); Chloride 101 mmol/L (98-107); Creatinine, Serum 2.96 mg/dL (0.70-1.30); EST Glomerular Filtration Rate 22 mL/min (>60); Est Glom Filt Rate - Afr Amer 27 mL/min (>60); Glucose 99 mg/dL (74-106); Phosphorus 4.5 mg/dL (2.5-4.9); Potassium 5.1 mmol/L (3.5-5.1); Sodium Level 130 mmol/L (136-145)
== END | disposition home or self-care (01) ==
LOC: LAB 12:28
PROVIDERS: PCP Family Medicine
DX: N18.4 Chronic kidney disease, stage 4 (severe) (principal); D63.1 Anemia in chronic kidney disease
CPT/HCPCS: 36415; 80069; 85014; 85018

== ENCOUNTER → 2024-07-31 | Outpatient (CLI) | payer MEDICARE, BC, SELFPAY ==
--- NOTE | 2024-07-31 15:00 | RAD_ITS ---
STUDY: X-RAY - LUMBAR SPINE REASON FOR EXAM: Male, 74 years old. Postlaminectomy syndrome. TECHNIQUE: 3 view(s) of the lumbar spine were obtained. COMPARISON: May 28, 2020 FINDINGS: Osteopenia. Normal lordosis. Mild levoscoliosis of the lower thoracic and upper lumbar spine. Stable 8 mm of anterolisthesis of L2 on L3. Diffuse moderate lower thoracic and lumbosacral facet sclerosis. Mild endplate concavities diffusely. Moderate intervertebral disc space narrowing with osteophytes at L2-3, L3-4, L4-5 and L5-S1. Marked vascular calcification and clips projected over the left upper quadrant. RAD/Lumbar Spine 2 or 3 Views IMPRESSION: Osteopenia with stable moderate lumbosacral spondylosis as described. Electronically Signed: Delmer Archer MD at 15:17 EDT ,
== END | disposition home or self-care (01) ==
LOC: RAD 14:46
PROVIDERS: PCP Family Medicine; Referring Provider Anesthesiology Pain Medicine; Visit Provider Anesthesiology Pain Medicine
DX: M96.1 Postlaminectomy syndrome, not elsewhere classified (principal)
CPT/HCPCS: 72100